=== PATIENT | female | born 1985 | race Caucasian/White ===

== ENCOUNTER 2017-04-08 12:42 | Emergency (ER) | payer OTHER ==
[~2017-04-08] VITALS: Ht 162.5 cm; Wt 113.4 kg
[~2017-04-08 12:42] MED LIST: 'PARAFON FORTE500 M1 PO; AMOXICILLIN500 M2 PO; BENADRYL ALLERG25 M5 PO; CLARITIN10 MG PO; FLONASE ALLERG9.9 ML NAS; FLUOXETINE HCL20 M2 PO; LEVOTHYROXIN0.025 MG PO; PHENERGAN25 M1 PO; PREDNISONE10 MG PO; PREDNISONE20 M1 PO
== END 2017-04-08 14:52 | disposition home or self-care (01) ==
LOC: ED 12:42
DX: S93.114A Dislocation of interphalangeal joint of right lesser toe(s), initial encounter (principal); Z79.899 Other long term (current) drug therapy; W22.03XA Walked into furniture, initial encounter; Y93.89 Activity, other specified; Y92.89 Other specified places as the place of occurrence of the external cause; Y99.8 Other external cause status

== ENCOUNTER 2021-04-23 20:04 | Emergency (ER) | payer OTHER ==
[~2021-04-23] VITALS: Ht 162.6 cm; Wt 115.7 kg
[2021-04-23] MEDS ORDERED: PRENATAL VITAM1 EAC4 PO (23:30)
== END 2021-04-24 02:10 | disposition left against medical advice (07) ==
LOC: ED 20:04
DX: S90.121A Contusion of right lesser toe(s) without damage to nail, initial encounter (principal); Z79.899 Other long term (current) drug therapy; W22.8XXA Striking against or struck by other objects, initial encounter; Y93.89 Activity, other specified; Y92.89 Other specified places as the place of occurrence of the external cause; Y99.8 Other external cause status